=== PATIENT | male | born 1990 | race Caucasian/White ===

== ENCOUNTER 2018-10-20 08:00 | Day surgery (SDC) | payer BC ==
[~2018-10-20] VITALS: Ht 170.2 cm; Wt 74.4 kg
[2018-10-20] MEDS ORDERED: CEFAZOLIN 2 GM IVPB PREMIX 50 ML IV ONE (09:35)
[2018-10-20] MEDS ORDERED: LR 1,000 ML IV.SOLN IV ONE (09:35)
[2018-10-20] MEDS ORDERED: NS IRRIG SOLN 1000 ML IR ONE (09:35)
[2018-10-20] MEDS ORDERED: SEVOFLURANE 15 MIN GAS INH ONE (09:35)
[2018-10-20] MEDS ORDERED: MIDAZOLAM HCL 5 MG/5 ML VIAL IVP ONE (09:35)
[2018-10-20] MEDS ORDERED: fentaNYL CITRATE/PF 100 MCG/2 ML AMP IVP ONE (09:35)
[2018-10-20] MEDS ORDERED: BUPIVACAINE /PF 0.25% 30 ML VIAL INJ ONE (09:35)
[2018-10-20] MEDS ORDERED: PROPOFOL 200MG/ 20ML VIAL (DIPRIVAN) IV ONE (09:35)
[2018-10-20] MEDS ORDERED: BUPIVACAINE /PF 0.5% 30 ML VIAL INJ ONE (09:35)
[2018-10-20] MEDS ORDERED: POLYMYXIN 500,000/BACIT.10,000 UNITS in NS IRR 1 L IR ONE (10:09)
[2018-10-20] MEDS ORDERED: ONDANSETRON HCL 4 MG/2 ML VIAL IVP PRN (10:15)
[2018-10-20] MEDS ORDERED: KETOROLAC TROMETHAMINE 30 MG VIAL IVP PRN (10:15)
[2018-10-20] MEDS ORDERED: fentaNYL CITRATE/PF 100 MCG/2 ML AMP IVP PRN (10:15)
[2018-10-20] MEDS: fentaNYL CITRATE/PF 100 MCG/2 ML AMP IVP PRN ×2 (12:30→12:40)
[2018-10-20] MEDS ORDERED: fentaNYL CITRATE/PF 100 MCG/2 ML AMP ONE (12:40)
[2018-10-20] MEDS ORDERED: MEPERIDINE HCL/PF 25 MG/ML DISP.SYRIN ONE (13:15)
[2018-10-20] MEDS ORDERED: MEPERIDINE HCL/PF 25 MG/ML DISP.SYRIN IM ONE (13:15)
[2018-10-20 14:08] VITALS: BP_SYST 120
[2018-10-20] MEDS ORDERED: KETOROLAC TROMETHAMINE 30 MG VIAL ONE (14:24)
== END 2018-10-20 14:45 | disposition still patient (30) ==
LOC: SDS 08:00
PROVIDERS: ATTEND Orthopaedic Surgery
DX: S52.302A Unspecified fracture of shaft of left radius, initial encounter for closed fracture (principal); S52.202A Unspecified fracture of shaft of left ulna, initial encounter for closed fracture; V49.9XXA Car occupant (driver) (passenger) injured in unspecified traffic accident, initial encounter; Y93.9 Activity, unspecified; Y92.89 Other specified places as the place of occurrence of the external cause; Y99.9 Unspecified external cause status
CPT/HCPCS: 25575; 76000; C1713 ×3; J1885; J2175; J3010; J7120; J0690; J2250; J2704; J3490